=== PATIENT | male | born 1970 | race Caucasian/White ===

== ENCOUNTER 2020-08-22 04:54 | Emergency (ER) | payer MEDICAID ==
[~2020-08-22] VITALS: Ht 188 cm; Wt 86.3 kg
[2020-08-22] MEDS ORDERED: ASPIRIN 81MG TABLET PO ONE (05:45)
[2020-08-22 06:16] LABS: BASOPHILS % 0.7 % (0.0-2.0); EOSINOPHILS % 1.2 % (0.0-5.0); HEMATOCRIT. 48.8 % (42.0-52.0); HEMOGLOBIN. 16.6 g/dL (14.0-18.0); LYMPHOCYTES % 41.6 % (20.0-50.0); MEAN CORPUSCULAR HEMOGLOBIN 34.3 pg (28.0-32.0); MEAN CORPUSCULAR VOLUME 100.9 fL (80.0-94.0); MEAN PLATELET VOLUME 7.3 fl (7.4-10.4); MONOCYTES % 7.3 % (2.0-8.0); NEUTROPHILS % 49.2 % (40.0-76.0); PLATELET 215 x1000/uL (130-400); RED BLOOD CELL COUNT 4.84 mill/uL (4.7-6.1); RED CELL DISTRIBUTION WIDTH 13.9 % (11.6-14.6)
[2020-08-22 06:24] LABS: CHLORIDE 106 mEq/L (98-107)
[2020-08-22 09:00] VITALS: BP 135/94
== END 2020-08-22 09:25 | disposition left against medical advice (07) ==
LOC: ER 04:54 → CANBEDREQ 21:31
DX: R07.9 Chest pain, unspecified (principal); J44.9 Chronic obstructive pulmonary disease, unspecified; Z86.711 Personal history of pulmonary embolism
CPT/HCPCS: 36415; 71045; 80053; 83880; 84484; 85025; 93005; 99285; Z7610

== ENCOUNTER 2020-08-27 15:33 | Emergency (ER) | payer MEDICAID ==
[~2020-08-27] VITALS: Ht 190.5 cm; Wt 96.0 kg
[2020-08-27] MEDS ORDERED: LORAZEPAM 1MG TABLET PO ONE (16:45)
[2020-08-27] MEDS ORDERED: ASPIRIN 81MG TABLET PO ONE (16:45)
[2020-08-27 17:35] VITALS: BP 160/106
== END 2020-08-27 19:06 | disposition left against medical advice (07) ==
LOC: ER 15:33
DX: R07.89 Other chest pain (principal); I10 Essential (primary) hypertension; F17.210 Nicotine dependence, cigarettes, uncomplicated; F12.10 Cannabis abuse, uncomplicated; Z86.711 Personal history of pulmonary embolism; Z86.718 Personal history of other venous thrombosis and embolism
CPT/HCPCS: 93005; 99283

== ENCOUNTER 2020-08-30 16:04 | Emergency (ER) | payer MEDICAID ==
[~2020-08-30] VITALS: Ht 193 cm; Wt 91.0 kg
[2020-08-30] MEDS ORDERED: APIX5TAB PO (16:08)
[2020-08-30 17:07] LABS: CHLORIDE 103 mEq/L (98-107)
[2020-08-30 17:09] LABS: BASOPHILS % 0.6 % (0.0-2.0); EOSINOPHILS % 0.6 % (0.0-5.0); HEMATOCRIT. 47.7 % (42.0-52.0); HEMOGLOBIN. 16.6 g/dL (14.0-18.0); LYMPHOCYTES % 39.9 % (20.0-50.0); MEAN CORPUSCULAR HEMOGLOBIN 34.9 pg (28.0-32.0); MEAN CORPUSCULAR VOLUME 100.2 fL (80.0-94.0); MONOCYTES % 8.3 % (2.0-8.0); NEUTROPHILS % 50.6 % (40.0-76.0); PLATELET 107 x1000/uL (130-400); RED BLOOD CELL COUNT 4.76 mill/uL (4.7-6.1); RED CELL DISTRIBUTION WIDTH 13.8 % (11.6-14.6)
[2020-08-30] MEDS: LORAZEPAM 2MG/ML CPJ IV ONE (17:20)
[2020-08-30 17:41] LABS: ETHANOL BLOOD 380 mg/dL
[2020-08-30] MEDS ORDERED: IOHEXOL-350 100 ML BOTTLE ONE (21:41)
[2020-08-31] MEDS: LORAZEPAM 2MG/ML CPJ IV ONE (04:25)
[2020-08-31] MEDS: ONDANSETRON HCL 4MG/2ML INJ IV ONE (04:25)
[2020-08-31 07:46] VITALS: BP 131/93
== END 2020-08-31 08:37 | disposition short-term general hospital (02) ==
LOC: ER 16:04
DX: R07.89 Other chest pain (principal); F10.10 Alcohol abuse, uncomplicated; Z98.890 Other specified postprocedural states; Y90.8 Blood alcohol level of 240 mg/100 ml or more
CPT/HCPCS: 36415; 71045; 71275; 80053; 80320; 83605; 83880; 84484; 85025; 86850; 86900; 86901; 93005; 96374; 96375; 96376; 99285; J2060; J2405; Q9967; Z7610; G0480

== ENCOUNTER 2020-09-12 02:11 | Emergency (ER) | payer MEDICAID ==
[~2020-09-12] VITALS: Ht 188 cm; Wt 91.0 kg
[~2020-09-12 02:11] MED LIST: APIX5TAB PO
[2020-09-12 03:01] LABS: BASOPHILS % 0.9 % (0.0-2.0); EOSINOPHILS % 1.8 % (0.0-5.0); HEMATOCRIT. 41.9 % (42.0-52.0); HEMOGLOBIN. 14.2 g/dL (14.0-18.0); LYMPHOCYTES % 51.5 % (20.0-50.0); MEAN CORPUSCULAR HEMOGLOBIN 35.2 pg (28.0-32.0); MEAN CORPUSCULAR VOLUME 103.7 fL (80.0-94.0); MEAN PLATELET VOLUME 7.2 fl (7.4-10.4); MONOCYTES % 12.6 % (2.0-8.0); NEUTROPHILS % 33.2 % (40.0-76.0); PLATELET 274 x1000/uL (130-400); RED BLOOD CELL COUNT 4.04 mill/uL (4.7-6.1); RED CELL DISTRIBUTION WIDTH 14.4 % (11.6-14.6)
[2020-09-12 03:08] LABS: CHLORIDE 111 mEq/L (98-107)
[2020-09-12 05:00] VITALS: BP 125/78
[2020-09-18] MEDS ORDERED: AMLO10TA80 MT (12:08)
[2020-09-18] MEDS ORDERED: THIA100T72 PO (12:08)
[2020-09-18] MEDS ORDERED: APIX5TAB PO (12:08)
[2020-09-18] MEDS ORDERED: APIX5TAB MT (12:08)
[2020-09-18] MEDS ORDERED: L25 MT (12:08)
== END 2020-09-12 05:56 | disposition home or self-care (01) ==
LOC: ER 02:11
DX: R07.89 Other chest pain (principal); Z86.711 Personal history of pulmonary embolism; Z86.718 Personal history of other venous thrombosis and embolism
CPT/HCPCS: 36415; 71045; 80048; 84484; 85025; 85379; 93005; 99285

== ENCOUNTER 2020-09-25 17:05 | Emergency (ER) | payer OTHER ==
[~2020-09-25] VITALS: Ht 198.1 cm; Wt 90.0 kg
[~2020-09-25 17:05] MED LIST changes: +AMLO10TA80 MT; +APIX5TAB MT; +L25 MT; +THIA100T72 PO
[2020-09-25 18:59] LABS: BASOPHILS % 0.7 % (0.0-2.0); EOSINOPHILS % 1.3 % (0.0-5.0); HEMATOCRIT. 45.7 % (42.0-52.0); HEMOGLOBIN. 15.3 g/dL (14.0-18.0); LYMPHOCYTES % 51.7 % (20.0-50.0); MEAN CORPUSCULAR HEMOGLOBIN 34.4 pg (28.0-32.0); MEAN CORPUSCULAR VOLUME 102.9 fL (80.0-94.0); MEAN PLATELET VOLUME 7.8 fl (7.4-10.4); MONOCYTES % 13.6 % (2.0-8.0); NEUTROPHILS % 32.7 % (40.0-76.0); PLATELET 143 x1000/uL (130-400); RED BLOOD CELL COUNT 4.44 mill/uL (4.7-6.1); RED CELL DISTRIBUTION WIDTH 14.3 % (11.6-14.6)
[2020-09-25 19:05] LABS: CHLORIDE 109 mEq/L (98-107)
[2020-09-25] MEDS ORDERED: ASPIRIN 81MG TABLET PO ONE (19:15)
[2020-09-25 19:21] LABS: PROTHROMBIN TIME 10.3 sec (9.6-11.0)
[2020-09-25] MEDS ORDERED: IOHEXOL-300 100 ML BOTTLE ONE (19:29)
[2020-09-25] MEDS ORDERED: IOHEXOL-350 100 ML BOTTLE ONE (19:29)
[2020-09-25 19:33] LABS: ETHANOL BLOOD 361 mg/dL
[2020-09-26] MEDS ORDERED: AMOX-424 MT (01:05)
[2020-09-26 01:36] VITALS: BP 124/84
== END 2020-09-26 01:36 | disposition home or self-care (01) ==
LOC: ER 17:05
DX: F10.129 Alcohol abuse with intoxication, unspecified (principal); Y90.8 Blood alcohol level of 240 mg/100 ml or more; L03.039 Cellulitis of unspecified toe; Z86.711 Personal history of pulmonary embolism; Z86.718 Personal history of other venous thrombosis and embolism
CPT/HCPCS: 36415; 71045; 71275; 80053; 80320; 83690; 83880; 84484; 85025; 85610; 85730; 93005; 99285; Q9967; Z7610; G0480

== ENCOUNTER 2020-09-26 22:28 | Emergency (ER) | payer OTHER ==
[~2020-09-26] VITALS: Ht 193 cm; Wt 91.0 kg
[~2020-09-26 22:28] MED LIST changes: +AMOX-424 MT
[2020-09-27 00:30] VITALS: BP 138/90
== END 2020-09-27 01:24 | disposition home or self-care (01) ==
LOC: ER 22:28
DX: R07.9 Chest pain, unspecified (principal); Z86.711 Personal history of pulmonary embolism
CPT/HCPCS: 93005; 99283; Z7610

== ENCOUNTER 2020-10-14 17:16 | Emergency (ER) | payer OTHER ==
[~2020-10-14] VITALS: Ht 185.4 cm; Wt 77.5 kg
[2020-10-14 18:20] LABS: BASOPHILS % 0.8 % (0.0-2.0); EOSINOPHILS % 3.3 % (0.0-5.0); HEMATOCRIT. 43.5 % (42.0-52.0); HEMOGLOBIN. 14.5 g/dL (14.0-18.0); LYMPHOCYTES % 46.2 % (20.0-50.0); MEAN CORPUSCULAR HEMOGLOBIN 34.1 pg (28.0-32.0); MEAN CORPUSCULAR VOLUME 102.3 fL (80.0-94.0); MEAN PLATELET VOLUME 7.2 fl (7.4-10.4); MONOCYTES % 8.2 % (2.0-8.0); NEUTROPHILS % 41.5 % (40.0-76.0); PLATELET 163 x1000/uL (130-400); RED BLOOD CELL COUNT 4.25 mill/uL (4.7-6.1); RED CELL DISTRIBUTION WIDTH 13.9 % (11.6-14.6)
[2020-10-14 18:29] LABS: CHLORIDE 111 mEq/L (98-107)
[2020-10-14] MEDS ORDERED: MORPHINE SULFATE 4 MG/ML CPJ (NOT FOR IM USE) IV ONE (18:45)
[2020-10-14] MEDS ORDERED: IOHEXOL-350 100 ML BOTTLE ONE ×2 (20:39→20:40)
[2020-10-14 22:36] VITALS: BP 113/71
== END 2020-10-14 22:45 | disposition home or self-care (01) ==
LOC: ER 17:16
DX: R07.9 Chest pain, unspecified (principal); I10 Essential (primary) hypertension; F10.20 Alcohol dependence, uncomplicated; F17.290 Nicotine dependence, other tobacco product, uncomplicated; Z79.899 Other long term (current) drug therapy; Y90.9 Presence of alcohol in blood, level not specified
CPT/HCPCS: 36415; 71045; 71275; 80053; 83880; 84484; 85025; 93005; 96374; 99285; 99406; J2270; Q9967

== ENCOUNTER 2020-10-28 22:53 | Emergency (ER) | payer OTHER ==
[~2020-10-28] VITALS: Ht 195.6 cm; Wt 110.0 kg
[2020-10-28 23:04] VITALS: BP 112/72
== END 2020-10-29 00:06 | disposition left against medical advice (07) ==
LOC: ER 22:53
DX: R07.89 Other chest pain (principal); F10.20 Alcohol dependence, uncomplicated; Z86.711 Personal history of pulmonary embolism; Y90.9 Presence of alcohol in blood, level not specified; Z79.01 Long term (current) use of anticoagulants
CPT/HCPCS: 93005; 99283

== ENCOUNTER 2020-11-02 13:33 | Emergency (ER) | payer OTHER ==
[~2020-11-02] VITALS: Ht 198.1 cm; Wt 90.7 kg
[2020-11-02 15:27] LABS: BASOPHILS % 0.9 % (0.0-2.0); HEMATOCRIT. 49.2 % (42.0-52.0); HEMOGLOBIN. 16.6 g/dL (14.0-18.0); LYMPHOCYTES % 25.9 % (20.0-50.0); MEAN CORPUSCULAR HEMOGLOBIN 34.4 pg (28.0-32.0); MEAN CORPUSCULAR VOLUME 101.8 fL (80.0-94.0); MEAN PLATELET VOLUME 7.3 fl (7.4-10.4); MONOCYTES % 11.6 % (2.0-8.0); NEUTROPHILS % 60.6 % (40.0-76.0); PLATELET 254 x1000/uL (130-400); RED BLOOD CELL COUNT 4.84 mill/uL (4.7-6.1); RED CELL DISTRIBUTION WIDTH 14.4 % (11.6-14.6)
[2020-11-02] MEDS ORDERED: ONDANSETRON HCL 4MG/2ML INJ IV ONE (15:30)
[2020-11-02 15:46] LABS: CHLORIDE 105 mEq/L (98-107)
[2020-11-02] MEDS ORDERED: LORA-249 MT (17:19)
[2020-11-02 17:25] VITALS: BP 124/78
== END 2020-11-02 17:40 | disposition home or self-care (01) ==
LOC: ER 13:44
DX: F10.10 Alcohol abuse, uncomplicated (principal); Z79.899 Other long term (current) drug therapy; Z86.711 Personal history of pulmonary embolism; Y90.9 Presence of alcohol in blood, level not specified
CPT/HCPCS: 36415; 71045; 80053; 83880; 84484; 85025; 93005; 96374; 99285; J2405

== ENCOUNTER 2020-11-04 00:58 | Emergency (ER) | payer MEDICAID, OTHER ==
[~2020-11-04] VITALS: Ht 182.9 cm; Wt 86.0 kg
[~2020-11-04 00:58] MED LIST changes: +LORA-249 MT
[2020-11-04] MEDS ORDERED: LORAZEPAM 2MG/ML CPJ IV STA (01:15)
[2020-11-04] MEDS ORDERED: SODIUM CHLORIDE 0.9% 1,000 ML IV ONE (01:15)
[2020-11-04] MEDS ORDERED: FOLIC ACID 1MG TABLET PO ONE (01:30)
[2020-11-04] MEDS ORDERED: DEXT 5%/0.9% NACL 500 ML IV ONE (01:30)
[2020-11-04] MEDS ORDERED: THIAMINE HCL 100MG TABLET PO ONE (01:30)
[2020-11-04 01:38] LABS: BASOPHILS % 0.7 % (0.0-2.0); EOSINOPHILS % 0.3 % (0.0-5.0); HEMATOCRIT. 44.1 % (42.0-52.0); HEMOGLOBIN. 15.3 g/dL (14.0-18.0); LYMPHOCYTES % 18.7 % (20.0-50.0); MEAN CORPUSCULAR VOLUME 100.9 fL (80.0-94.0); MEAN PLATELET VOLUME 7.4 fl (7.4-10.4); NEUTROPHILS % 73.3 % (40.0-76.0); PLATELET 219 x1000/uL (130-400); RED BLOOD CELL COUNT 4.37 mill/uL (4.7-6.1)
[2020-11-04 01:40] LABS: CHLORIDE 108 mEq/L (98-107)
[2020-11-04 01:58] LABS: ETHANOL BLOOD 438 mg/dL
[2020-11-04 04:12] LABS: CLARITY URINE CLEAR (CLEAR); COLOR URINE YELLOW (YELLOW); KETONES URINE NEGATIVE (NEGATIVE); LEUKOCYTE ESTERASE URINE NEGATIVE (NEGATIVE); NITRITE URINE NEGATIVE (NEGATIVE); OCCULT BLOOD URINE TRACE (NEGATIVE); PROTEIN URINE NEGATIVE (NEGATIVE); SPECIFIC GRAVITY URINE 1.011 (1.005-1.030)
[2020-11-04 04:21] LABS: OPIATES URINE SCREEN NEGATIVE (NEGATIVE); PHENCYCLIDINE URINE SCREEN NEGATIVE (NEGATIVE)
[2020-11-04] MEDS ORDERED: CHLO10CA71 MT (04:21)
[2020-11-04 04:22] LABS: *AMPHETAMINES SCREEN URINE NEGATIVE (NEGATIVE); *BARBITURATES SCREEN URINE NEGATIVE (NEGATIVE); *BENZODIAZEPINES SCREEN URINE PRESUMTIVE POSITIVE (NEGATIVE); *COCAINE SCREEN URINE NEGATIVE (NEGATIVE); CANNABINOID URINE SCREEN NEGATIVE (NEGATIVE); METHADONE URINE SCREEN NEGATIVE (NEGATIVE)
[2020-11-04 04:45] VITALS: BP 140/97
== END 2020-11-04 04:46 | disposition home or self-care (01) ==
LOC: ER 01:20
DX: F10.10 Alcohol abuse, uncomplicated (principal); Y90.8 Blood alcohol level of 240 mg/100 ml or more; R25.1 Tremor, unspecified; F41.9 Anxiety disorder, unspecified; I10 Essential (primary) hypertension; Z86.711 Personal history of pulmonary embolism
CPT/HCPCS: 36415; 80053; 80305; 80307; 80320; 80329; 81003; 83690; 85025; 96361; 96374; 99283; C1893; J2060; J7030; J7042; G0480

== ENCOUNTER 2020-11-06 08:37 | Emergency (ER) | payer MEDICAID, OTHER ==
[~2020-11-06] VITALS: Ht 177.8 cm; Wt 78.0 kg
[~2020-11-06 08:37] MED LIST changes: +CHLO10CA71 MT
[2020-11-06] MEDS ORDERED: ONDANSETRON HCL 4MG/2ML INJ IV STA (09:02)
[2020-11-06] MEDS ORDERED: SODIUM CHLORIDE 0.9% 1,000 ML IV ONE (09:15)
[2020-11-06] MEDS ORDERED: LORAZEPAM 2MG/ML CPJ IV ONE (09:15)
[2020-11-06 09:26] LABS: BASOPHILS % 0.8 % (0.0-2.0); EOSINOPHILS % 0.7 % (0.0-5.0); HEMATOCRIT. 44.5 % (42.0-52.0); HEMOGLOBIN. 15.7 g/dL (14.0-18.0); LYMPHOCYTES % 18.5 % (20.0-50.0); MEAN CORPUSCULAR HEMOGLOBIN 35.5 pg (28.0-32.0); MEAN CORPUSCULAR VOLUME 100.7 fL (80.0-94.0); MEAN PLATELET VOLUME 7.8 fl (7.4-10.4); MONOCYTES % 8.2 % (2.0-8.0); NEUTROPHILS % 71.8 % (40.0-76.0); PLATELET 161 x1000/uL (130-400); RED BLOOD CELL COUNT 4.42 mill/uL (4.7-6.1); RED CELL DISTRIBUTION WIDTH 14.1 % (11.6-14.6)
[2020-11-06 09:33] LABS: CHLORIDE 100 mEq/L (98-107)
[2020-11-06 09:36] LABS: PROTHROMBIN TIME 10.7 sec (9.6-11.0)
[2020-11-06 09:37] LABS: ETHANOL BLOOD 165 mg/dL
[2020-11-06 09:40] VITALS: BP 169/100
[2020-11-06] MEDS ORDERED: LORA-250 MT (09:59)
[2020-11-06] MEDS ORDERED: ONDA4TAB5 MT (09:59)
== END 2020-11-06 10:30 | disposition home or self-care (01) ==
LOC: ER 08:57
DX: F10.229 Alcohol dependence with intoxication, unspecified (principal); Y90.6 Blood alcohol level of 120-199 mg/100 ml; Z79.899 Other long term (current) drug therapy
CPT/HCPCS: 36415; 71045; 80053; 80320; 83690; 83735; 84484; 85025; 85610; 93005; 96361; 96374; 96375; 99285; J2060; J2405; J7030; G0480

== ENCOUNTER 2020-11-14 23:17 | Emergency (ER) | payer MEDICAID, OTHER ==
[~2020-11-14] VITALS: Ht 198.1 cm; Wt 100.0 kg
[~2020-11-14 23:17] MED LIST changes: +LORA-250 MT; +ONDA4TAB5 MT
[2020-11-14] MEDS ORDERED: ACETAMINOPHEN 325MG TABLET PO STA (23:55)
[2020-11-15] MEDS ORDERED: SODIUM CHLORIDE 0.9% 1,000 ML IV ONE
[2020-11-15 00:42] LABS: CHLORIDE 103 mEq/L (98-107)
[2020-11-15 00:44] LABS: BASOPHILS % 0.7 % (0.0-2.0); EOSINOPHILS % 0.9 % (0.0-5.0); HEMATOCRIT. 45.8 % (42.0-52.0); HEMOGLOBIN. 15.8 g/dL (14.0-18.0); LYMPHOCYTES % 33.4 % (20.0-50.0); MEAN CORPUSCULAR VOLUME 101.5 fL (80.0-94.0); MEAN PLATELET VOLUME 7.6 fl (7.4-10.4); MONOCYTES % 14.5 % (2.0-8.0); NEUTROPHILS % 50.5 % (40.0-76.0); PLATELET 149 x1000/uL (130-400); RED BLOOD CELL COUNT 4.52 mill/uL (4.7-6.1); RED CELL DISTRIBUTION WIDTH 15.1 % (11.6-14.6)
[2020-11-15 01:12] LABS: ETHANOL BLOOD 475 mg/dL
[2020-11-15] MEDS ORDERED: LORAZEPAM 2MG/ML CPJ IV ONE (03:45)
[2020-11-15] MEDS ORDERED: ONDANSETRON HCL 4MG/2ML INJ IV ONE (04:45)
[2020-11-15 10:13] VITALS: BP 122/85
== END 2020-11-15 11:23 | disposition home or self-care (01) ==
LOC: ER 23:17
DX: R07.89 Other chest pain (principal); F41.9 Anxiety disorder, unspecified; F10.129 Alcohol abuse with intoxication, unspecified; Y90.8 Blood alcohol level of 240 mg/100 ml or more; Z86.711 Personal history of pulmonary embolism
CPT/HCPCS: 36415; 71045; 80053; 80320; 84484; 85025; 93005; 96361; 96374; 99285; J2060; G0480

== ENCOUNTER 2020-11-24 13:11 | Emergency (ER) | payer MEDICAID, OTHER ==
[~2020-11-24] VITALS: Ht 198.1 cm; Wt 77.0 kg
[2020-11-24] MEDS ORDERED: LORAZEPAM 2MG/ML CPJ IV ONE ×2 (14:45→16:45)
[2020-11-24] MEDS ORDERED: DEXT 5%/0.9% NACL 1,000 ML IV ONE (14:45)
[2020-11-24 15:44] LABS: BASOPHILS % 1.3 % (0.0-2.0); EOSINOPHILS % 0.3 % (0.0-5.0); HEMATOCRIT. 45.7 % (42.0-52.0); HEMOGLOBIN. 16.2 g/dL (14.0-18.0); MEAN CORPUSCULAR HEMOGLOBIN 35.7 pg (28.0-32.0); MEAN CORPUSCULAR VOLUME 100.6 fL (80.0-94.0); MEAN PLATELET VOLUME 7.2 fl (7.4-10.4); MONOCYTES % 11.4 % (2.0-8.0); PLATELET 161 x1000/uL (130-400); RED BLOOD CELL COUNT 4.54 mill/uL (4.7-6.1); RED CELL DISTRIBUTION WIDTH 14.4 % (11.6-14.6)
[2020-11-24 15:49] LABS: CHLORIDE 105 mEq/L (98-107)
[2020-11-24 15:55] LABS: ETHANOL BLOOD 246 mg/dL
[2020-11-24 16:09] LABS: *AMPHETAMINES SCREEN URINE NEGATIVE (NEGATIVE); *BARBITURATES SCREEN URINE PRESUMTIVE POSITIVE (NEGATIVE); *BENZODIAZEPINES SCREEN URINE PRESUMTIVE POSITIVE (NEGATIVE); METHADONE URINE SCREEN NEGATIVE (NEGATIVE); OPIATES URINE SCREEN NEGATIVE (NEGATIVE)
[2020-11-24 16:10] LABS: *COCAINE SCREEN URINE NEGATIVE (NEGATIVE); CANNABINOID URINE SCREEN NEGATIVE (NEGATIVE); PHENCYCLIDINE URINE SCREEN NEGATIVE (NEGATIVE)
[2020-11-24] MEDS ORDERED: CEFTRIAXONE 1 G PREMIX 50 ML IV ONE (16:45)
[2020-11-24] MEDS ORDERED: SODIUM CHLORIDE 0.9% 1,000 ML IV ONE (16:45)
[2020-11-24 19:55] VITALS: BP 143/90
== END 2020-11-24 21:22 | disposition left against medical advice (07) ==
LOC: ER 13:11
DX: R07.9 Chest pain, unspecified (principal); J44.9 Chronic obstructive pulmonary disease, unspecified; R56.9 Unspecified convulsions; F10.129 Alcohol abuse with intoxication, unspecified; Y90.8 Blood alcohol level of 240 mg/100 ml or more; F19.10 Other psychoactive substance abuse, uncomplicated
CPT/HCPCS: 36415; 71045; 80053; 80305; 80320; 83605; 83880; 84484; 85025; 93005; 96365; 96375; 96376; 99285; J0696; J2060; J7030; J7042; G0480

== ENCOUNTER 2020-11-29 01:48 | Emergency (ER) | payer MEDICAID, OTHER ==
[~2020-11-29] VITALS: Ht 203.2 cm; Wt 91.0 kg
[2020-11-29] MEDS ORDERED: LORAZEPAM 1MG TABLET PO ONE (02:45)
[2020-11-29 02:47] LABS: CHLORIDE 100 mEq/L (98-107)
[2020-11-29] MEDS: HYDROCODONE/ACETAMINOPHEN 5/325MG TABLET PO ONE ×2 (02:59→04:24)
[2020-11-29 04:25] LABS: BASOPHILS % 1.4 % (0.0-2.0); EOSINOPHILS % 3.4 % (0.0-5.0); HEMATOCRIT. 51.7 % (42.0-52.0); HEMOGLOBIN. 18.3 g/dL (14.0-18.0); LYMPHOCYTES % 45.2 % (20.0-50.0); MEAN CORPUSCULAR HEMOGLOBIN 35.9 pg (28.0-32.0); MEAN CORPUSCULAR VOLUME 101.6 fL (80.0-94.0); MEAN PLATELET VOLUME 8.2 fl (7.4-10.4); MONOCYTES % 7.5 % (2.0-8.0); NEUTROPHILS % 42.5 % (40.0-76.0); RED BLOOD CELL COUNT 5.08 mill/uL (4.7-6.1); RED CELL DISTRIBUTION WIDTH 14.8 % (11.6-14.6)
[2020-11-29 04:28] LABS: PLATELET 169 x1000/uL (130-400)
[2020-11-29 04:53] VITALS: BP 137/91
[2020-11-30] MEDS ORDERED: HYDR-3782 MT (14:36)
== END 2020-11-29 04:54 | disposition home or self-care (01) ==
LOC: ER 01:48
DX: R07.9 Chest pain, unspecified (principal)
CPT/HCPCS: 36415; 71045; 80053; 84484; 85025; 93005; 99285

== ENCOUNTER 2020-11-30 08:36 | Emergency (ER) | payer MEDICAID ==
[~2020-11-30] VITALS: Ht 198.1 cm; Wt 90.0 kg
[2020-11-30] MEDS ORDERED: LORAZEPAM 2MG/ML CPJ IV ONE (09:15)
[2020-11-30 09:44] LABS: BASOPHILS % 1.2 % (0.0-2.0); EOSINOPHILS % 0.9 % (0.0-5.0); HEMATOCRIT. 43.7 % (42.0-52.0); HEMOGLOBIN. 15.6 g/dL (14.0-18.0); LYMPHOCYTES % 29.2 % (20.0-50.0); MEAN CORPUSCULAR HEMOGLOBIN 35.7 pg (28.0-32.0); MEAN CORPUSCULAR VOLUME 99.9 fL (80.0-94.0); MEAN PLATELET VOLUME 7.6 fl (7.4-10.4); NEUTROPHILS % 61.7 % (40.0-76.0); PLATELET 151 x1000/uL (130-400); RED BLOOD CELL COUNT 4.37 mill/uL (4.7-6.1); RED CELL DISTRIBUTION WIDTH 14.9 % (11.6-14.6)
[2020-11-30 09:55] LABS: CHLORIDE 101 mEq/L (98-107)
[2020-11-30 10:02] LABS: *BENZODIAZEPINES SCREEN URINE NEGATIVE (NEGATIVE); *COCAINE SCREEN URINE NEGATIVE (NEGATIVE); METHADONE URINE SCREEN NEGATIVE (NEGATIVE)
[2020-11-30 10:03] LABS: *AMPHETAMINES SCREEN URINE NEGATIVE (NEGATIVE); *BARBITURATES SCREEN URINE NEGATIVE (NEGATIVE); OPIATES URINE SCREEN NEGATIVE (NEGATIVE); PHENCYCLIDINE URINE SCREEN NEGATIVE (NEGATIVE)
[2020-11-30 10:10] LABS: ETHANOL BLOOD 458 mg/dL
[2020-11-30 10:19] LABS: CANNABINOID URINE SCREEN NEGATIVE (NEGATIVE)
[2020-11-30] MEDS ORDERED: LIDOCAINE 5% PATCH TOP SCH (11:30)
[2020-11-30] MEDS: IBUPROFEN 400MG TABLET PO ONE ×2 (12:24→12:26)
[2020-11-30] MEDS ORDERED: LORAZEPAM 1MG TABLET PO ONE (12:45)
[2020-11-30] MEDS ORDERED: HYDR-3782 MT (14:36)
[2020-11-30 14:53] VITALS: BP 135/81
== END 2020-11-30 15:15 | disposition home or self-care (01) ==
LOC: ER 08:36
DX: F10.10 Alcohol abuse, uncomplicated (principal); F41.0 Panic disorder [episodic paroxysmal anxiety]; R07.89 Other chest pain; I10 Essential (primary) hypertension; Z79.899 Other long term (current) drug therapy; Y90.8 Blood alcohol level of 240 mg/100 ml or more
CPT/HCPCS: 36415; 71045; 80053; 80305; 80320; 83690; 83880; 84484; 85025; 93005; 96374; 99285; J2060; Z7610; G0480

== ENCOUNTER 2020-12-02 13:32 | Emergency (ER) | payer MEDICAID, OTHER ==
[~2020-12-02] VITALS: Ht 193 cm; Wt 91.0 kg
[~2020-12-02 13:32] MED LIST changes: +HYDR-3782 MT
[2020-12-02 17:56] VITALS: BP 145/100
== END 2020-12-02 18:36 | disposition left against medical advice (07) ==
LOC: ER 13:46
DX: F10.239 Alcohol dependence with withdrawal, unspecified (principal); R53.1 Weakness; R42 Dizziness and giddiness; R07.9 Chest pain, unspecified; Z53.21 Procedure and treatment not carried out due to patient leaving prior to being seen by health care provider; Y90.9 Presence of alcohol in blood, level not specified
CPT/HCPCS: 93005; 99283

== ENCOUNTER 2020-12-19 00:53 | Emergency (ER) | payer OTHER ==
[~2020-12-19] VITALS: Ht 198.1 cm; Wt 99.8 kg
[2020-12-19 02:50] VITALS: BP 141/87
== END 2020-12-19 02:49 | disposition home or self-care (01) ==
LOC: ER 00:53
DX: F10.129 Alcohol abuse with intoxication, unspecified (principal); Y90.9 Presence of alcohol in blood, level not specified; F41.9 Anxiety disorder, unspecified; F32.9 Major depressive disorder, single episode, unspecified; Z86.711 Personal history of pulmonary embolism; Z79.01 Long term (current) use of anticoagulants; Z91.14 Patient's other noncompliance with medication regimen
CPT/HCPCS: 99283

== ENCOUNTER 2020-12-20 16:03 | Emergency (ER) | payer OTHER ==
[~2020-12-20] VITALS: Ht 198.1 cm; Wt 100.0 kg
[2020-12-20] MEDS ORDERED: CHLORDIAZEPOXIDE 25MG CAPSULE PO ONE (16:30)
[2020-12-20] MEDS ORDERED: SODIUM CHLORIDE 0.9% 1,000 ML IV ONE (16:30)
[2020-12-20] MEDS ORDERED: LORAZEPAM 2MG/ML CPJ IV ONE (16:30)
[2020-12-20 16:37] LABS: BASOPHILS % 1.2 % (0.0-2.0); EOSINOPHILS % 0.4 % (0.0-5.0); HEMATOCRIT. 45.8 % (42.0-52.0); HEMOGLOBIN. 16.2 g/dL (14.0-18.0); LYMPHOCYTES % 19.3 % (20.0-50.0); MEAN CORPUSCULAR HEMOGLOBIN 35.5 pg (28.0-32.0); MEAN CORPUSCULAR VOLUME 100.3 fL (80.0-94.0); MONOCYTES % 8.8 % (2.0-8.0); NEUTROPHILS % 70.3 % (40.0-76.0); PLATELET 355 x1000/uL (130-400); RED BLOOD CELL COUNT 4.56 mill/uL (4.7-6.1); RED CELL DISTRIBUTION WIDTH 14.6 % (11.6-14.6)
[2020-12-20 16:44] LABS: CHLORIDE 103 mEq/L (98-107)
[2020-12-20 16:48] LABS: ETHANOL BLOOD 162 mg/dL
[2020-12-20 18:16] VITALS: BP 152/102
== END 2020-12-20 18:29 | disposition home or self-care (01) ==
LOC: ER 16:03
DX: F10.239 Alcohol dependence with withdrawal, unspecified (principal); Y90.9 Presence of alcohol in blood, level not specified; F32.9 Major depressive disorder, single episode, unspecified; Z86.711 Personal history of pulmonary embolism
CPT/HCPCS: 36415; 80053; 80320; 85025; 96361; 96374; 99283; J2060; J7030; Z7610; 80305; 81003; G0480

== ENCOUNTER 2020-12-28 09:57 | Emergency (ER) | payer OTHER ==
[~2020-12-28] VITALS: Ht 193 cm; Wt 89.0 kg
[2020-12-28] MEDS ORDERED: SODIUM CHLORIDE 0.9% 1,000 ML IV ONE (10:15)
[2020-12-28] MEDS ORDERED: LORAZEPAM 2MG/ML CPJ IV ONE (10:15)
[2020-12-28 11:00] VITALS: BP 145/98
== END 2020-12-28 11:01 | disposition home or self-care (01) ==
LOC: ER 09:57
DX: F10.129 Alcohol abuse with intoxication, unspecified (principal); Z79.899 Other long term (current) drug therapy; Y90.9 Presence of alcohol in blood, level not specified
CPT/HCPCS: 99283; J7030

== ENCOUNTER 2021-01-06 01:16 | Emergency (ER) | payer OTHER ==
[~2021-01-06] VITALS: Ht 198.1 cm; Wt 91.0 kg
[2021-01-06] MEDS ORDERED: KETOROLAC 30MG/ML VIAL IV STA (02:27)
[2021-01-06] MEDS ORDERED: SODIUM CHLORIDE 0.9% 1,000 ML IV ONE (02:30)
[2021-01-06 02:46] LABS: BASOPHILS % 0.8 % (0.0-2.0); EOSINOPHILS % 1.6 % (0.0-5.0); HEMATOCRIT. 48.3 % (42.0-52.0); HEMOGLOBIN. 16.9 g/dL (14.0-18.0); LYMPHOCYTES % 46.8 % (20.0-50.0); MEAN CORPUSCULAR HEMOGLOBIN 35.9 pg (28.0-32.0); MEAN CORPUSCULAR VOLUME 102.5 fL (80.0-94.0); MEAN PLATELET VOLUME 7.5 fl (7.4-10.4); MONOCYTES % 10.5 % (2.0-8.0); NEUTROPHILS % 40.3 % (40.0-76.0); PLATELET 145 x1000/uL (130-400); RED BLOOD CELL COUNT 4.71 mill/uL (4.7-6.1); RED CELL DISTRIBUTION WIDTH 14.9 % (11.6-14.6)
[2021-01-06 02:47] LABS: CHLORIDE 105 mEq/L (98-107)
[2021-01-06 03:10] LABS: ETHANOL BLOOD 406 mg/dL
[2021-01-06 04:00] LABS: CLARITY URINE CLEAR (CLEAR); COLOR URINE YELLOW (YELLOW); KETONES URINE NEGATIVE (NEGATIVE); LEUKOCYTE ESTERASE URINE NEGATIVE (NEGATIVE); NITRITE URINE NEGATIVE (NEGATIVE); OCCULT BLOOD URINE NEGATIVE (NEGATIVE); PROTEIN URINE NEGATIVE (NEGATIVE); UROBILINOGEN URINE 0.2 E.U./dL (0.2-1.0)
[2021-01-06] MEDS ORDERED: FAMO-135 PO (04:02)
[2021-01-06 04:13] LABS: *AMPHETAMINES SCREEN URINE NEGATIVE (NEGATIVE)
[2021-01-06 04:14] LABS: *BARBITURATES SCREEN URINE NEGATIVE (NEGATIVE); *BENZODIAZEPINES SCREEN URINE PRESUMTIVE POSITIVE (NEGATIVE); *COCAINE SCREEN URINE NEGATIVE (NEGATIVE); CANNABINOID URINE SCREEN NEGATIVE (NEGATIVE); METHADONE URINE SCREEN NEGATIVE (NEGATIVE); OPIATES URINE SCREEN NEGATIVE (NEGATIVE); PHENCYCLIDINE URINE SCREEN NEGATIVE (NEGATIVE)
[2021-01-06 05:42] VITALS: BP 129/67
== END 2021-01-06 05:43 | disposition home or self-care (01) ==
LOC: ER 01:35
DX: F10.129 Alcohol abuse with intoxication, unspecified (principal); Y90.8 Blood alcohol level of 240 mg/100 ml or more; R10.13 Epigastric pain; Z98.890 Other specified postprocedural states; Z79.899 Other long term (current) drug therapy
CPT/HCPCS: 36415; 74176; 80053; 80305; 80320; 81003; 83690; 85025; 96360; 99284; J7030; G0480

== ENCOUNTER 2021-01-11 04:49 | Emergency (ER) | payer OTHER ==
[~2021-01-11] VITALS: Ht 198.1 cm; Wt 100.0 kg
[~2021-01-11 04:49] MED LIST changes: +FAMO-135 PO
[2021-01-11 05:10] VITALS: BP 142/92
[2021-01-11] MEDS ORDERED: L25 MT (05:17)
== END 2021-01-11 05:32 | disposition home or self-care (01) ==
LOC: ER 04:49
DX: F10.129 Alcohol abuse with intoxication, unspecified (principal); Z79.899 Other long term (current) drug therapy; Y90.9 Presence of alcohol in blood, level not specified
CPT/HCPCS: 93005; 99283

== ENCOUNTER 2021-01-13 05:29 | Emergency (ER) | payer OTHER ==
[~2021-01-13] VITALS: Ht 182.9 cm; Wt 83.0 kg
[2021-01-13] MEDS ORDERED: LORAZEPAM 1MG TABLET PO ONE (06:45)
[2021-01-13] MEDS ORDERED: ONDANSETRON 4MG ODT PO ONE (06:45)
[2021-01-13 07:04] LABS: CLARITY URINE CLEAR (CLEAR); COLOR URINE YELLOW (YELLOW); KETONES URINE NEGATIVE (NEGATIVE); LEUKOCYTE ESTERASE URINE NEGATIVE (NEGATIVE); NITRITE URINE NEGATIVE (NEGATIVE); OCCULT BLOOD URINE TRACE (NEGATIVE); PROTEIN URINE NEGATIVE (NEGATIVE); SPECIFIC GRAVITY URINE 1.006 (1.005-1.030)
[2021-01-13 07:15] LABS: *COCAINE SCREEN URINE NEGATIVE (NEGATIVE); METHADONE URINE SCREEN NEGATIVE (NEGATIVE)
[2021-01-13 07:16] LABS: *AMPHETAMINES SCREEN URINE NEGATIVE (NEGATIVE); *BARBITURATES SCREEN URINE NEGATIVE (NEGATIVE); CANNABINOID URINE SCREEN NEGATIVE (NEGATIVE); OPIATES URINE SCREEN NEGATIVE (NEGATIVE)
[2021-01-13 07:17] LABS: *BENZODIAZEPINES SCREEN URINE NEGATIVE (NEGATIVE); PHENCYCLIDINE URINE SCREEN NEGATIVE (NEGATIVE)
[2021-01-13 08:02] LABS: EOSINOPHILS % 3.8 % (0.0-5.0); HEMATOCRIT. 44.4 % (42.0-52.0); HEMOGLOBIN. 15.9 g/dL (14.0-18.0); LYMPHOCYTES % 45.5 % (20.0-50.0); MEAN CORPUSCULAR HEMOGLOBIN 35.8 pg (28.0-32.0); MEAN CORPUSCULAR VOLUME 100.2 fL (80.0-94.0); MEAN PLATELET VOLUME 7.3 fl (7.4-10.4); MONOCYTES % 9.6 % (2.0-8.0); NEUTROPHILS % 40.1 % (40.0-76.0); PLATELET 146 x1000/uL (130-400); RED BLOOD CELL COUNT 4.43 mill/uL (4.7-6.1); RED CELL DISTRIBUTION WIDTH 15.1 % (11.6-14.6)
[2021-01-13 08:10] LABS: CHLORIDE 109 mEq/L (98-107)
[2021-01-13 08:31] LABS: ETHANOL BLOOD 405 mg/dL
[2021-01-13] MEDS ORDERED: POTASSIUM CHLORIDE 20MEQ TABLET SR PO ONE (09:00)
[2021-01-13] MEDS ORDERED: CHLORDIAZEPOXIDE 25MG CAPSULE PO ONE (09:00)
[2021-01-13 09:20] VITALS: BP 117/72
[2021-01-13] MEDS ORDERED: IBUP-2029 MT (10:38)
[2021-01-28] MEDS ORDERED: METO-539 MT ×2 (12:21→12:22)
[2021-01-28] MEDS ORDERED: APIX5TAB MT (12:22)
== END 2021-01-13 11:07 | disposition home or self-care (01) ==
LOC: ER 05:41
DX: T51.0X1A Toxic effect of ethanol, accidental (unintentional), initial encounter (principal); Y92.89 Other specified places as the place of occurrence of the external cause; E87.6 Hypokalemia; Z79.899 Other long term (current) drug therapy
CPT/HCPCS: 36415; 80053; 80305; 80307; 80320; 80329; 81003; 85025; 93005; 99284; Q0162; Z7610; G0480

== ENCOUNTER 2021-01-16 23:49 | Emergency (ER) | payer OTHER ==
[~2021-01-16] VITALS: Ht 185.4 cm; Wt 98.0 kg
[~2021-01-16 23:49] MED LIST changes: +IBUP-2029 MT
[2021-01-17] MEDS ORDERED: ACETAMINOPHEN 325MG TABLET PO STA (00:19)
[2021-01-17 01:19] VITALS: BP 134/89
[2021-01-28] MEDS ORDERED: METO-539 MT ×2 (12:21→12:22)
[2021-01-28] MEDS ORDERED: APIX5TAB MT (12:22)
== END 2021-01-17 01:20 | disposition left against medical advice (07) ==
LOC: ER 23:49
DX: R07.9 Chest pain, unspecified (principal); Z86.718 Personal history of other venous thrombosis and embolism
CPT/HCPCS: 71045; 93005; 99283

== ENCOUNTER 2021-01-24 21:27 | Emergency (ER) | payer OTHER ==
[~2021-01-24] VITALS: Ht 198.1 cm; Wt 108.0 kg
[2021-01-24] MEDS ORDERED: SODIUM CHLORIDE 0.9% 1,000 ML IV ONE (22:15)
[2021-01-24 22:29] LABS: HEMATOCRIT. 49.7 % (42.0-52.0); HEMOGLOBIN. 17.3 g/dL (14.0-18.0); MEAN CORPUSCULAR HEMOGLOBIN 35.6 pg (28.0-32.0); MEAN CORPUSCULAR VOLUME 102.1 fL (80.0-94.0); MEAN PLATELET VOLUME 8.1 fl (7.4-10.4); PLATELET 96 x1000/uL (130-400); RED BLOOD CELL COUNT 4.86 mill/uL (4.7-6.1); RED CELL DISTRIBUTION WIDTH 15.4 % (11.6-14.6)
[2021-01-24 22:32] LABS: CHLORIDE 103 mEq/L (98-107)
[2021-01-24 23:03] LABS: PLATELET ESTIMATE DECREASED
[2021-01-25 06:25] VITALS: BP 119/70
[2021-01-28] MEDS ORDERED: METO-539 MT ×2 (12:21→12:22)
[2021-01-28] MEDS ORDERED: APIX5TAB MT (12:22)
== END 2021-01-25 06:25 | disposition home or self-care (01) ==
LOC: ER 21:27
DX: F10.129 Alcohol abuse with intoxication, unspecified (principal); R07.89 Other chest pain; F41.9 Anxiety disorder, unspecified; R74.01 Elevation of levels of liver transaminase levels; I10 Essential (primary) hypertension; Z79.899 Other long term (current) drug therapy; Y90.9 Presence of alcohol in blood, level not specified
CPT/HCPCS: 36415; 71045; 80053; 84484; 85025; 93005; 99285; J7030

== ENCOUNTER 2021-02-12 16:46 | Emergency (ER) | payer OTHER ==
[~2021-02-12] VITALS: Ht 198.1 cm; Wt 91.0 kg
[~2021-02-12 16:46] MED LIST changes: -AMLO10TA80 MT; -AMOX-424 MT; -APIX5TAB PO; -CHLO10CA71 MT; -L25 MT; -LORA-250 MT; +METO-539 MT
[2021-02-12 18:28] LABS: BASOPHILS % 1.4 % (0.0-2.0); EOSINOPHILS % 1.4 % (0.0-5.0); HEMATOCRIT. 42.4 % (42.0-52.0); HEMOGLOBIN. 15.3 g/dL (14.0-18.0); LYMPHOCYTES % 31.5 % (20.0-50.0); MEAN CORPUSCULAR HEMOGLOBIN 36.4 pg (28.0-32.0); MEAN CORPUSCULAR VOLUME 100.7 fL (80.0-94.0); MEAN PLATELET VOLUME 6.8 fl (7.4-10.4); MONOCYTES % 10.4 % (2.0-8.0); NEUTROPHILS % 55.3 % (40.0-76.0); PLATELET 328 x1000/uL (130-400); RED BLOOD CELL COUNT 4.21 mill/uL (4.7-6.1); RED CELL DISTRIBUTION WIDTH 14.9 % (11.6-14.6)
[2021-02-12 18:31] LABS: CHLORIDE 99 mEq/L (98-107)
[2021-02-12 18:36] LABS: D-DIMER 0.49 mg/L FEU (<0.50); PARTIAL THROMBOPLASTIN TIME 28.9 sec (23.4-31.0); PROTHROMBIN TIME 10.5 sec (9.6-11.0)
[2021-02-12] MEDS ORDERED: LORAZEPAM 2MG/ML CPJ IV ONE (19:15)
[2021-02-12] MEDS ORDERED: SODIUM CHLORIDE 0.9% 1,000 ML IV ONE (19:15)
[2021-02-12 20:22] VITALS: BP 143/92
== END 2021-02-12 20:24 | disposition home or self-care (01) ==
LOC: ER 16:46
DX: G92 Toxic encephalopathy (principal); F10.129 Alcohol abuse with intoxication, unspecified; R10.13 Epigastric pain; R41.0 Disorientation, unspecified; Z79.899 Other long term (current) drug therapy; Z86.718 Personal history of other venous thrombosis and embolism; Y90.9 Presence of alcohol in blood, level not specified
CPT/HCPCS: 36415; 71045; 80053; 83690; 83880; 84484; 85025; 85379; 85610; 85730; 93005; 96361; 96374; 99285; J2060; J7030

== ENCOUNTER 2021-02-14 18:56 | Emergency (ER) | payer OTHER, MEDICAID ==
[~2021-02-14] VITALS: Ht 193 cm; Wt 92.0 kg
[2021-02-14 18:58] VITALS: BP 138/86
[2021-02-14] MEDS ORDERED: LORAZEPAM 1MG TABLET PO ONE (20:45)
== END 2021-02-14 21:36 | disposition home or self-care (01) ==
LOC: ER 18:56
DX: R10.9 Unspecified abdominal pain (principal); F10.239 Alcohol dependence with withdrawal, unspecified; Y90.9 Presence of alcohol in blood, level not specified; Z86.711 Personal history of pulmonary embolism; Z86.718 Personal history of other venous thrombosis and embolism
CPT/HCPCS: 93005; 99283

== ENCOUNTER 2021-02-16 11:39 | Emergency (ER) | payer OTHER ==
[~2021-02-16] VITALS: Ht 198.1 cm; Wt 90.0 kg
[2021-02-16 11:51] VITALS: BP 167/100
[2021-02-16] MEDS ORDERED: CHLORDIAZEPOXIDE 5 MG CAPSULE PO NR (12:15)
[2021-02-16] MEDS ORDERED: CHLORDIAZEPOXIDE 25MG CAPSULE PO ONE (12:15)
[2021-02-16 13:13] LABS: BASOPHILS % 1.1 % (0.0-2.0); EOSINOPHILS % 1.8 % (0.0-5.0); HEMATOCRIT. 51.2 % (42.0-52.0); HEMOGLOBIN. 17.8 g/dL (14.0-18.0); LYMPHOCYTES % 24.6 % (20.0-50.0); MEAN CORPUSCULAR HEMOGLOBIN 35.9 pg (28.0-32.0); MEAN CORPUSCULAR VOLUME 103.4 fL (80.0-94.0); MONOCYTES % 6.7 % (2.0-8.0); NEUTROPHILS % 65.8 % (40.0-76.0); PLATELET 212 x1000/uL (130-400); RED BLOOD CELL COUNT 4.95 mill/uL (4.7-6.1); RED CELL DISTRIBUTION WIDTH 14.9 % (11.6-14.6)
[2021-02-16 13:19] LABS: CHLORIDE 97 mEq/L (98-107)
[2021-02-16 13:50] LABS: *AMPHETAMINES SCREEN URINE NEGATIVE (NEGATIVE); CANNABINOID URINE SCREEN NEGATIVE (NEGATIVE)
[2021-02-16 13:51] LABS: *BARBITURATES SCREEN URINE NEGATIVE (NEGATIVE); *BENZODIAZEPINES SCREEN URINE NEGATIVE (NEGATIVE); *COCAINE SCREEN URINE NEGATIVE (NEGATIVE); METHADONE URINE SCREEN NEGATIVE (NEGATIVE); OPIATES URINE SCREEN NEGATIVE (NEGATIVE); PHENCYCLIDINE URINE SCREEN NEGATIVE (NEGATIVE)
[2021-02-16 14:13] LABS: ETHANOL BLOOD 332 mg/dL
== END 2021-02-16 13:13 | disposition left against medical advice (07) ==
LOC: ER 11:39
DX: F10.129 Alcohol abuse with intoxication, unspecified (principal); Y90.8 Blood alcohol level of 240 mg/100 ml or more; R10.9 Unspecified abdominal pain; Z86.711 Personal history of pulmonary embolism; Z86.718 Personal history of other venous thrombosis and embolism
CPT/HCPCS: 36415; 80053; 80305; 80320; 85025; 99283; G0480

== ENCOUNTER 2021-02-16 18:01 | Emergency (ER) | payer OTHER, MEDICAID ==
[~2021-02-16] VITALS: Ht 182.9 cm; Wt 90.0 kg
[2021-02-16 18:33] VITALS: BP 155/101
[2021-02-16] MEDS ORDERED: ACETAMINOPHEN 325MG TABLET PO STA (21:35)
== END 2021-02-16 22:13 | disposition left against medical advice (07) ==
LOC: ER 18:01
DX: Z53.21 Procedure and treatment not carried out due to patient leaving prior to being seen by health care provider (principal); R10.84 Generalized abdominal pain; I10 Essential (primary) hypertension
CPT/HCPCS: 93005

== ENCOUNTER 2021-02-17 22:01 | Emergency (ER) | payer OTHER ==
[~2021-02-17] VITALS: Ht 198.1 cm; Wt 100.0 kg
[2021-02-17 22:24] VITALS: BP 132/78
== END 2021-02-17 23:30 | disposition left against medical advice (07) ==
LOC: ER 22:01
DX: R10.9 Unspecified abdominal pain (principal); Z53.21 Procedure and treatment not carried out due to patient leaving prior to being seen by health care provider

== ENCOUNTER 2021-02-18 20:05 | Emergency (ER) | payer MEDICAID, OTHER ==
[~2021-02-18] VITALS: Ht 198.1 cm; Wt 99.0 kg
[2021-02-18 20:07] VITALS: BP 159/111
== END 2021-02-18 22:36 | disposition left against medical advice (07) ==
LOC: ER 20:05
DX: Z53.21 Procedure and treatment not carried out due to patient leaving prior to being seen by health care provider (principal); I49.9 Cardiac arrhythmia, unspecified
CPT/HCPCS: 93005

== ENCOUNTER 2021-03-06 02:59 | Emergency (ER) | payer MEDICAID ==
[~2021-03-06] VITALS: Ht 182.9 cm; Wt 96.0 kg
[2021-03-06 03:01] VITALS: BP 122/87
[2021-03-06] MEDS ORDERED: LORAZEPAM 1MG TABLET PO ONE (04:15)
== END 2021-03-06 04:09 | disposition left against medical advice (07) ==
LOC: ER 02:59
DX: F10.10 Alcohol abuse, uncomplicated (principal); Y90.9 Presence of alcohol in blood, level not specified; I10 Essential (primary) hypertension
CPT/HCPCS: 99283

== ENCOUNTER 2021-03-09 01:37 | Emergency (ER) | payer MEDICAID ==
[~2021-03-09] VITALS: Ht 198.1 cm; Wt 91.0 kg
[2021-03-09 02:14] VITALS: BP 161/98
[2021-03-09] MEDS ORDERED: ONDANSETRON 4MG ODT PO ONE (03:45)
[2021-03-09 03:47] LABS: BASOPHILS % 2.1 % (0.0-2.0); EOSINOPHILS % 2.9 % (0.0-5.0); HEMATOCRIT. 47.3 % (42.0-52.0); HEMOGLOBIN. 16.3 g/dL (14.0-18.0); LYMPHOCYTES % 23.7 % (20.0-50.0); MEAN CORPUSCULAR HEMOGLOBIN 35.8 pg (28.0-32.0); MEAN CORPUSCULAR VOLUME 103.7 fL (80.0-94.0); MONOCYTES % 6.6 % (2.0-8.0); NEUTROPHILS % 64.7 % (40.0-76.0); PLATELET 341 x1000/uL (130-400); RED BLOOD CELL COUNT 4.56 mill/uL (4.7-6.1); RED CELL DISTRIBUTION WIDTH 14.4 % (11.6-14.6)
[2021-03-09 03:56] LABS: CHLORIDE 102 mEq/L (98-107)
[2021-03-09 03:58] LABS: CLARITY URINE CLEAR (CLEAR); COLOR URINE YELLOW (YELLOW); KETONES URINE NEGATIVE (NEGATIVE); LEUKOCYTE ESTERASE URINE NEGATIVE (NEGATIVE); NITRITE URINE NEGATIVE (NEGATIVE); OCCULT BLOOD URINE NEGATIVE (NEGATIVE); PH URINE 6.5 (4.5-8.0); PROTEIN URINE NEGATIVE (NEGATIVE); SPECIFIC GRAVITY URINE 1.009 (1.005-1.030); UROBILINOGEN URINE 0.2 E.U./dL (0.2-1.0)
== END 2021-03-09 04:40 | disposition home or self-care (01) ==
LOC: ER 01:37
DX: F10.10 Alcohol abuse, uncomplicated (principal); Y90.9 Presence of alcohol in blood, level not specified; Z91.14 Patient's other noncompliance with medication regimen; I10 Essential (primary) hypertension
CPT/HCPCS: 36415; 80053; 81003; 83690; 85025; 93005; 99284; Q0162

== ENCOUNTER 2021-03-10 14:55 | Emergency (ER) | payer MEDICAID ==
[~2021-03-10] VITALS: Ht 198.1 cm; Wt 98.0 kg
[2021-03-10 15:12] VITALS: BP 137/94
[2021-03-11] MEDS ORDERED: FAMO-135 MT (04:14)
== END 2021-03-10 16:29 | disposition left against medical advice (07) ==
LOC: ER 14:55
DX: R07.89 Other chest pain (principal); Z53.21 Procedure and treatment not carried out due to patient leaving prior to being seen by health care provider
CPT/HCPCS: 93005

== ENCOUNTER 2021-03-10 19:11 | Emergency (ER) | payer MEDICAID ==
[~2021-03-10] VITALS: Ht 198.1 cm; Wt 98.0 kg
[2021-03-11] MEDS ORDERED: MAGNESIUM/ALUMINUM HYDROXIDE/SIMETHICONE 30ML UDC PO STA (02:27)
[2021-03-11] MEDS ORDERED: FAMOTIDINE 20MG/2ML VIAL IV STA (02:27)
[2021-03-11] MEDS ORDERED: ONDANSETRON HCL 4MG/2ML INJ IV STA (02:27)
[2021-03-11] MEDS ORDERED: SODIUM CHLORIDE 0.9% 1,000 ML IV ONE (02:30)
[2021-03-11] MEDS ORDERED: CHLORDIAZEPOXIDE 25MG CAPSULE PO ONE (02:30)
[2021-03-11] MEDS ORDERED: CHLORDIAZEPOXIDE 5 MG CAPSULE PO NR (03:00)
[2021-03-11 03:09] LABS: BASOPHILS % 0.5 % (0.0-2.0); EOSINOPHILS % 0.2 % (0.0-5.0); HEMATOCRIT. 44.8 % (42.0-52.0); HEMOGLOBIN. 15.8 g/dL (14.0-18.0); LYMPHOCYTES % 7.8 % (20.0-50.0); MEAN CORPUSCULAR HEMOGLOBIN 36.3 pg (28.0-32.0); MEAN CORPUSCULAR VOLUME 102.8 fL (80.0-94.0); MEAN PLATELET VOLUME 8.1 fl (7.4-10.4); NEUTROPHILS % 86.5 % (40.0-76.0); PLATELET 268 x1000/uL (130-400); RED BLOOD CELL COUNT 4.35 mill/uL (4.7-6.1); RED CELL DISTRIBUTION WIDTH 14.8 % (11.6-14.6)
[2021-03-11 03:11] LABS: CHLORIDE 96 mEq/L (98-107)
[2021-03-11 03:15] LABS: INR 1.1; PROTHROMBIN TIME 11.4 sec (9.6-11.0)
[2021-03-11] MEDS ORDERED: FAMO-135 MT (04:14)
[2021-03-11 05:05] VITALS: BP 156/89
== END 2021-03-11 05:27 | disposition home or self-care (01) ==
LOC: ER 19:11
DX: R10.13 Epigastric pain (principal); F10.10 Alcohol abuse, uncomplicated; Y90.9 Presence of alcohol in blood, level not specified; I10 Essential (primary) hypertension; Z86.711 Personal history of pulmonary embolism; Z86.718 Personal history of other venous thrombosis and embolism; Z79.01 Long term (current) use of anticoagulants
CPT/HCPCS: 36415; 80053; 83690; 85025; 85610; 93005; 96361; 96374; 96375; 99284; J2405; J3490; J7030

== ENCOUNTER 2021-03-21 21:27 | Emergency (ER) | payer MEDICAID ==
[~2021-03-21] VITALS: Ht 198.1 cm; Wt 91.0 kg
[~2021-03-21 21:27] MED LIST changes: +FAMO-135 MT
[2021-03-21 22:01] VITALS: BP_SYST 115
== END 2021-03-22 00:48 | disposition left against medical advice (07) ==
LOC: ER 21:35
DX: Z53.21 Procedure and treatment not carried out due to patient leaving prior to being seen by health care provider (principal)

== ENCOUNTER 2021-04-02 05:02 | Emergency (ER) | payer MEDICAID ==
[~2021-04-02] VITALS: Ht 198.1 cm; Wt 91.0 kg
[2021-04-02 05:14] VITALS: BP 148/97
[2021-04-02] MEDS ORDERED: LORAZEPAM 2MG/ML CPJ IV ONE (05:30)
[2021-04-02] MEDS ORDERED: FOLIC ACID 1 MG, THIAMINE HCL 100 MG, MVI, ADULT NO.1 10 ML in DEXTROSE 5% WATER 1,000 ML IV ONE (05:30)
[2021-04-02] MEDS ORDERED: SODIUM CHLORIDE 0.9% 1,000 ML IV ONE (05:30)
== END 2021-04-02 06:02 | disposition left against medical advice (07) ==
LOC: ER 05:02
DX: R00.0 Tachycardia, unspecified (principal); F10.20 Alcohol dependence, uncomplicated; F17.200 Nicotine dependence, unspecified, uncomplicated; I10 Essential (primary) hypertension; Z13.9 Encounter for screening, unspecified; Z79.899 Other long term (current) drug therapy; Y90.9 Presence of alcohol in blood, level not specified
CPT/HCPCS: 93005; 99283; J3411; J3490; J7030; J7070

== ENCOUNTER 2024-02-01 11:20 | Emergency (ER) | payer MEDICAID ==
[~2024-02-01] VITALS: Ht 198.1 cm; Wt 120.0 kg
[2024-02-01 11:24] VITALS: BP 118/70; PULSE 93; RESP 18; TEMP 98.9; O2SAT 98
[2024-02-01 12:13] LABS: HEMATOCRIT. 37.9 % (42.0-52.0); HEMOGLOBIN. 12.7 g/dL (14.0-18.0); MEAN CORPUSCULAR HEMOGLOBIN 36.1 pg (28.0-32.0); MEAN CORPUSCULAR HGB CONC 33.4 g/dL (31.0-37.0); MEAN CORPUSCULAR VOLUME 108.2 fL (80.0-94.0); MEAN PLATELET VOLUME 7.2 fl (7.4-10.4); PLATELET 247 x1000/uL (130-400); RED BLOOD CELL COUNT 3.51 mill/uL (4.7-6.1); RED CELL DISTRIBUTION WIDTH 17.1 % (11.6-14.6); WHITE BLOOD COUNT 3.1 x1000/uL (4.5-11.0)
[2024-02-01 12:14] LABS: DIFFERENTIAL COMMENT 1
[2024-02-01 12:20] LABS: CHLORIDE 107 mEq/L (98-107); POTASSIUM 3.9 mEq/L (3.5-5.1); SODIUM 144 mEq/L (136-145)
[2024-02-01 12:21] LABS: CALCIUM 8.3 mg/dL (8.7-10.4); CARBON DIOXIDE 28 mEq/L (21-32)
[2024-02-01 12:26] LABS: CREATININE 0.6 mg/dL (0.6-1.3); GLUCOSE 93 mg/dL (70-105)
[2024-02-01 12:27] LABS: TROPONIN I HIGH SENSITIVITY 4 ng/L (3.0-53)
[2024-02-01 12:28] LABS: UREA NITROGEN BLOOD < 5 mg/dL (9-23)
[2024-02-01 12:54] LABS: ETHANOL BLOOD 454 mg/dL (<10)
[2024-02-01 12:55] LABS: ANISOCYTOSIS 1+; PLATELET ESTIMATE NORMAL
[2024-02-01] MEDS ORDERED: FOLIC ACID 1 MG, THIAMINE HCL 100 MG, MVI, ADULT NO.1 10 ML in DEXTROSE 5% WATER 1,000 ML IV ONE (13:00)
== END 2024-02-01 15:59 | disposition left against medical advice (07) ==
LOC: ER 11:20
DX: F10.229 Alcohol dependence with intoxication, unspecified (principal); G92.9 Unspecified toxic encephalopathy; I10 Essential (primary) hypertension; Z79.899 Other long term (current) drug therapy; Y90.8 Blood alcohol level of 240 mg/100 ml or more
CPT/HCPCS: 36415; 80048; 80320; 84484; 85025; 99283; J3411; J3490; J7070; G0480

== ENCOUNTER 2024-07-08 00:53 | Emergency (ER) | payer MEDICAID ==
[~2024-07-08] VITALS: Ht 182.9 cm; Wt 105.0 kg
[2024-07-08 01:04] VITALS: BP 142/88; PULSE 90; RESP 14; TEMP 98.2; O2SAT 98
[2024-07-08 04:16] LABS: HEMATOCRIT. 44.8 % (42.0-52.0); HEMOGLOBIN. 14.9 g/dL (14.0-18.0); MEAN CORPUSCULAR HGB CONC 33.3 g/dL (31.0-37.0); MEAN CORPUSCULAR VOLUME 108.3 fL (80.0-94.0); MEAN PLATELET VOLUME 7.7 fl (7.4-10.4); PLATELET 145 x1000/uL (130-400); RED BLOOD CELL COUNT 4.14 mill/uL (4.7-6.1); RED CELL DISTRIBUTION WIDTH 16.1 % (11.6-14.6)
[2024-07-08 04:21] LABS: CHLORIDE 110 mEq/L (98-107); SODIUM 147 mEq/L (136-145)
[2024-07-08 04:22] LABS: CALCIUM 8.9 mg/dL (8.7-10.4); CARBON DIOXIDE 28 mEq/L (21-32)
[2024-07-08 04:27] LABS: CREATININE 0.7 mg/dL (0.6-1.3); GLUCOSE 98 mg/dL (70-105); UREA NITROGEN BLOOD 6 mg/dL (9-23)
[2024-07-08 04:42] LABS: DIFFERENTIAL COMMENT 1
[2024-07-08 04:55] LABS: TROPONIN I HIGH SENSITIVITY < 4 ng/L (3.0-53)
[2024-07-08 10:30] LABS: ATYPICAL LYMPHOCYTES 1; PLATELET ESTIMATE NORMAL
== END 2024-07-08 05:18 | disposition home or self-care (01) ==
LOC: ER 00:53
DX: R07.89 Other chest pain (principal); R51.9 Headache, unspecified; I10 Essential (primary) hypertension; F10.20 Alcohol dependence, uncomplicated; Z82.49 Family history of ischemic heart disease and other diseases of the circulatory system; Z79.01 Long term (current) use of anticoagulants
CPT/HCPCS: 36415; 71045; 80048; 84484; 85025; 93005; 99284

== ENCOUNTER 2024-07-26 00:25 | Emergency (ER) | payer MEDICAID ==
[~2024-07-26] VITALS: Ht 198.1 cm; Wt 100.0 kg
[2024-07-26 00:29] VITALS: BP 170/89; PULSE 98; RESP 18; TEMP 98.9; O2SAT 99
== END 2024-07-26 00:52 | disposition left against medical advice (07) ==
LOC: ER 00:25
DX: R07.89 Other chest pain (principal); F10.20 Alcohol dependence, uncomplicated; I10 Essential (primary) hypertension; Z79.899 Other long term (current) drug therapy; Y90.9 Presence of alcohol in blood, level not specified
CPT/HCPCS: 71045; 93005; 99283

== ENCOUNTER 2024-12-30 01:57 | Emergency (ER) | payer MEDICAID, OTHER ==
[~2024-12-30] VITALS: Ht 182.9 cm; Wt 96.0 kg
[2024-12-30 02:02] VITALS: O2SAT 95
[2024-12-30] MEDS ORDERED: DICYCLOMINE 10 MG/5 ML ORAL SYR PO STA (02:06)
[2024-12-30] MEDS: ONDANSETRON 4MG ODT PO STA (02:39)
[2024-12-30] MEDS: CHLORDIAZEPOXIDE 25MG CAPSULE PO ONE (02:40)
[2024-12-30] MEDS: MAGNESIUM/ALUMINUM HYDROXIDE/SIMETHICONE 30ML UDC PO STA (02:58)
[2024-12-30 03:28] LABS: BASOPHILS % 0.6 % (0.0-2.0); DIFFERENTIAL COMMENT 0; EOSINOPHILS % 2.1 % (0.0-5.0); HEMOGLOBIN. 15.3 g/dL (14.0-18.0); LYMPHOCYTES % 45.2 % (20.0-50.0); MEAN CORPUSCULAR HEMOGLOBIN 34.8 pg (28.0-32.0); MEAN CORPUSCULAR VOLUME 102.2 fL (80.0-94.0); MEAN PLATELET VOLUME 7.3 fl (7.4-10.4); MONOCYTES % 8.8 % (2.0-8.0); NEUTROPHILS % 43.3 % (40.0-76.0); PLATELET 160 x1000/uL (130-400); RED BLOOD CELL COUNT 4.41 mill/uL (4.7-6.1); RED CELL DISTRIBUTION WIDTH 14.2 % (11.6-14.6); WHITE BLOOD COUNT 3.6 x1000/uL (4.5-11.0)
[2024-12-30 03:33] LABS: PROTHROMBIN TIME 10.3 sec (9.6-11.0)
[2024-12-30 03:35] LABS: CARBON DIOXIDE 25 mEq/L (21-32); CHLORIDE 106 mEq/L (98-107); POTASSIUM 3.7 mEq/L (3.5-5.1); SODIUM 142 mEq/L (136-145)
[2024-12-30 03:40] LABS: CREATININE 0.7 mg/dL (0.6-1.3)
[2024-12-30 03:41] LABS: ETHANOL BLOOD 300 mg/dL (<10); GLUCOSE 102 mg/dL (70-105); TROPONIN I HIGH SENSITIVITY 4 ng/L (3.0-53); UREA NITROGEN BLOOD 8 mg/dL (9-23)
[2024-12-30 03:42] LABS: ALANINE AMINOTRANSFERASE 55 IU/L (10-49); ALBUMIN 4.8 g/dL (3.2-4.8); ASPARTATE AMINOTRANSFERASE 50 IU/L (<34)
[2024-12-30 03:43] LABS: BILIRUBIN DIRECT 0.2 mg/dL (<=3.0); BILIRUBIN TOTAL 0.8 mg/dL (0.1-1.0); PROTEIN TOTAL 7.5 g/dL (6.0-8.3)
[2024-12-30] MEDS: DICYCLOMINE HCL 10MG CAPSULE PO SCH (04:05)
[2024-12-30 04:34] VITALS: TEMP 36.7
[2024-12-30 05:42] VITALS: BP 124/75; PULSE 86; RESP 10; O2SAT 95
== END 2024-12-30 05:58 | disposition home or self-care (01) ==
LOC: ER 01:57
DX: F10.229 Alcohol dependence with intoxication, unspecified (principal); R07.89 Other chest pain; I10 Essential (primary) hypertension; Z79.899 Other long term (current) drug therapy; Z86.718 Personal history of other venous thrombosis and embolism; Y90.8 Blood alcohol level of 240 mg/100 ml or more
CPT/HCPCS: 80076; 80048; 80320; 83880; 83690; 83735; 84100; 85025; 85610; 84484; 36415; 71045; 93005; 99285; Q0162; Z7610; G0480

== ENCOUNTER 2025-01-21 03:27 | Emergency (ER) | payer OTHER ==
[~2025-01-21] VITALS: Ht 193 cm; Wt 105.0 kg
[2025-01-21 03:31] VITALS: O2SAT 99
[2025-01-21 04:31] LABS: CLARITY URINE CLEAR (CLEAR); COLOR URINE YELLOW (YELLOW); GLUCOSE URINE NEGATIVE (NEGATIVE); KETONES URINE NEGATIVE (NEGATIVE); LEUKOCYTE ESTERASE URINE NEGATIVE (NEGATIVE); NITRITE URINE NEGATIVE (NEGATIVE); OCCULT BLOOD URINE NEGATIVE (NEGATIVE); PH URINE 6.5 (4.5-8.0); PROTEIN URINE NEGATIVE (NEGATIVE); SPECIFIC GRAVITY URINE 1.006 (1.005-1.030); UROBILINOGEN URINE 0.2 E.U./dL (0.2-1.0)
[2025-01-21 04:35] LABS: CREATININE 0.8 mg/dL (0.6-1.3); UREA NITROGEN BLOOD 10 mg/dL (9-23)
[2025-01-21] MEDS: ONDANSETRON 4MG ODT PO ONE (05:28)
[2025-01-21 05:40] LABS: BASOPHILS % 0.9 % (0.0-2.0); EOSINOPHILS % 1.4 % (0.0-5.0); HEMATOCRIT. 44.1 % (42.0-52.0); HEMOGLOBIN. 14.7 g/dL (14.0-18.0); LYMPHOCYTES % 30.6 % (20.0-50.0); MEAN PLATELET VOLUME 7.0 fl (7.4-10.4); MONOCYTES % 12.9 % (2.0-8.0); NEUTROPHILS % 54.2 % (40.0-76.0); PLATELET 160 x1000/uL (130-400); RED BLOOD CELL COUNT 4.17 mill/uL (4.7-6.1); RED CELL DISTRIBUTION WIDTH 14.9 % (11.6-14.6)
[2025-01-21 05:57] LABS: TROPONIN I HIGH SENSITIVITY < 4 ng/L (3.0-53)
[2025-01-21 05:58] LABS: ASPARTATE AMINOTRANSFERASE 110 IU/L (<34); BILIRUBIN DIRECT 0.2 mg/dL (<=3.0); BILIRUBIN TOTAL 0.6 mg/dL (0.1-1.0); PROTEIN TOTAL 7.2 g/dL (6.0-8.3)
[2025-01-21 08:00] VITALS: BP 127/71; PULSE 70; RESP 18; TEMP 37.3; O2SAT 99
[2025-01-21 08:46] LABS: TROPONIN I HIGH SENSITIVITY 4 ng/L (3.0-53)
== END 2025-01-21 08:25 | disposition left against medical advice (07) ==
LOC: ER 03:39 → EDBEDREQ 07:10 → EDBEDREQTM 07:10 → ENRESERV 07:39 → CANRESERV 07:39 → CANBEDREQ 08:12 → ER 08:25
DX: R07.89 Other chest pain (principal); R10.12 Left upper quadrant pain; R79.89 Other specified abnormal findings of blood chemistry; I10 Essential (primary) hypertension; Z79.899 Other long term (current) drug therapy; Z98.890 Other specified postprocedural states
CPT/HCPCS: 80076; 80048; 81003; 83690; 85025; 85379; 84484; 36415; 71045; 93005; 99291; Q0162; Z7610; A4606

== ENCOUNTER 2025-01-23 10:46 | Emergency (ER) | payer OTHER ==
[~2025-01-23] VITALS: Ht 188 cm; Wt 90.0 kg
[2025-01-23 10:48] VITALS: BP 163/91; PULSE 89; RESP 16; TEMP 36.7; O2SAT 96
[2025-01-23 11:42] LABS: BASOPHILS % 0.7 % (0.0-2.0); EOSINOPHILS % 1.8 % (0.0-5.0); HEMATOCRIT. 41.6 % (42.0-52.0); HEMOGLOBIN. 13.9 g/dL (14.0-18.0); LYMPHOCYTES % 26.3 % (20.0-50.0); MEAN PLATELET VOLUME 7.2 fl (7.4-10.4); MONOCYTES % 9.7 % (2.0-8.0); NEUTROPHILS % 61.5 % (40.0-76.0); PLATELET 142 x1000/uL (130-400); RED BLOOD CELL COUNT 3.95 mill/uL (4.7-6.1); RED CELL DISTRIBUTION WIDTH 14.8 % (11.6-14.6)
[2025-01-23 12:00] LABS: CREATININE 0.7 mg/dL (0.6-1.3); UREA NITROGEN BLOOD 9 mg/dL (9-23)
[2025-01-23 12:01] LABS: TROPONIN I HIGH SENSITIVITY 4 ng/L (3.0-53)
[2025-01-23 12:10] LABS: ETHANOL BLOOD 391 mg/dL (<10)
== END 2025-01-23 16:21 | disposition left against medical advice (07) ==
LOC: ER 10:46 → EDBEDREQTM 14:21 → EDBEDREQ 14:21 → CMPBEDREQ 15:57 → ER 16:21
DX: R07.89 Other chest pain (principal); I10 Essential (primary) hypertension; F10.90 Alcohol use, unspecified, uncomplicated; Z79.01 Long term (current) use of anticoagulants; Z79.899 Other long term (current) drug therapy; Y90.9 Presence of alcohol in blood, level not specified
CPT/HCPCS: 36415; 80048; 80320; 83880; 84484; 85025; 93005; 99284; G0480

== ENCOUNTER 2025-01-23 18:12 | Emergency (ER) | payer OTHER ==
[~2025-01-23] VITALS: Ht 195.6 cm; Wt 91.0 kg
[~2025-01-23 18:12] MED LIST changes: +IBUP-1455 MT; -IBUP-2029 MT
[2025-01-23 18:17] VITALS: BP 137/84; PULSE 99; RESP 18; TEMP 36.9; O2SAT 99
[2025-01-23] MEDS ORDERED: SODIUM CHLORIDE 0.9% 1,000 ML IV ONE (19:15)
[2025-01-23 22:03] LABS: BASOPHILS % 0.8 % (0.0-2.0); EOSINOPHILS % 3.2 % (0.0-5.0); HEMATOCRIT. 41.2 % (42.0-52.0); HEMOGLOBIN. 13.9 g/dL (14.0-18.0); LYMPHOCYTES % 40.0 % (20.0-50.0); MEAN PLATELET VOLUME 7.5 fl (7.4-10.4); MONOCYTES % 8.6 % (2.0-8.0); NEUTROPHILS % 47.4 % (40.0-76.0); PLATELET 134 x1000/uL (130-400); RED BLOOD CELL COUNT 3.95 mill/uL (4.7-6.1); RED CELL DISTRIBUTION WIDTH 14.8 % (11.6-14.6)
[2025-01-23 22:14] LABS: CREATININE 0.7 mg/dL (0.6-1.3); UREA NITROGEN BLOOD 9 mg/dL (9-23)
[2025-01-23 22:24] LABS: ETHANOL BLOOD 315 mg/dL (<10)
== END 2025-01-23 23:25 | disposition left against medical advice (07) ==
LOC: ER 18:12
DX: F10.229 Alcohol dependence with intoxication, unspecified (principal); I10 Essential (primary) hypertension; Z79.01 Long term (current) use of anticoagulants; Y90.9 Presence of alcohol in blood, level not specified
CPT/HCPCS: 36415; 80048; 80320; 85025; 99283; J7030; G0480

== ENCOUNTER 2025-01-25 11:53 | Emergency (ER) | payer OTHER ==
[~2025-01-25] VITALS: Ht 195.6 cm; Wt 100.0 kg
[~2025-01-25 11:53] MED LIST changes: -IBUP-1455 MT; +IBUP-2029 MT
[2025-01-25 11:56] VITALS: BP 136/92; PULSE 100; RESP 18; TEMP 37.1; O2SAT 96
[2025-01-25 12:48] LABS: BASOPHILS % 0.8 % (0.0-2.0); EOSINOPHILS % 4.2 % (0.0-5.0); HEMATOCRIT. 40.2 % (42.0-52.0); HEMOGLOBIN. 13.9 g/dL (14.0-18.0); LYMPHOCYTES % 15.6 % (20.0-50.0); MONOCYTES % 7.0 % (2.0-8.0); NEUTROPHILS % 72.4 % (40.0-76.0); RED BLOOD CELL COUNT 3.83 mill/uL (4.7-6.1); RED CELL DISTRIBUTION WIDTH 14.8 % (11.6-14.6)
[2025-01-25 12:58] LABS: CREATININE 0.7 mg/dL (0.6-1.3); UREA NITROGEN BLOOD 9 mg/dL (9-23)
[2025-01-25 12:59] LABS: ETHANOL BLOOD 300 mg/dL (<10)
[2025-01-25 13:00] LABS: ASPARTATE AMINOTRANSFERASE 81 IU/L (<34); BILIRUBIN DIRECT 0.3 mg/dL (<=3.0)
[2025-01-25 13:01] LABS: BILIRUBIN TOTAL 1.0 mg/dL (0.1-1.0); PROTEIN TOTAL 7.0 g/dL (6.0-8.3)
[2025-01-25 13:45] LABS: MEAN PLATELET VOLUME 7.6 fl (7.4-10.4); PLATELET 130 x1000/uL (130-400)
== END 2025-01-25 13:46 | disposition home or self-care (01) ==
LOC: ER 11:53
DX: F10.229 Alcohol dependence with intoxication, unspecified (principal); I10 Essential (primary) hypertension; Z79.899 Other long term (current) drug therapy; Y90.8 Blood alcohol level of 240 mg/100 ml or more
CPT/HCPCS: 36415; 80048; 80076; 80320; 85025; 99283; G0480

== ENCOUNTER 2025-01-27 12:45 | Emergency (ER) | payer OTHER ==
[~2025-01-27] VITALS: Ht 195.6 cm; Wt 101.0 kg
[2025-01-27 12:49] VITALS: BP 140/101; PULSE 96; RESP 16; TEMP 37.1; O2SAT 97
[2025-01-27 14:21] LABS: BASOPHILS % 0.2 % (0.0-2.0); EOSINOPHILS % 0.8 % (0.0-5.0); HEMATOCRIT. 42.1 % (42.0-52.0); HEMOGLOBIN. 14.3 g/dL (14.0-18.0); LYMPHOCYTES % 22.3 % (20.0-50.0); MEAN PLATELET VOLUME 7.8 fl (7.4-10.4); MONOCYTES % 7.8 % (2.0-8.0); NEUTROPHILS % 68.9 % (40.0-76.0); PLATELET 118 x1000/uL (130-400); RED BLOOD CELL COUNT 4.04 mill/uL (4.7-6.1); RED CELL DISTRIBUTION WIDTH 15.5 % (11.6-14.6)
[2025-01-27 14:24] LABS: INR 0.9
[2025-01-27 14:27] LABS: CREATININE 0.7 mg/dL (0.6-1.3); UREA NITROGEN BLOOD 9 mg/dL (9-23)
[2025-01-27 14:28] LABS: TROPONIN I HIGH SENSITIVITY < 4 ng/L (3.0-53)
[2025-01-27 14:29] LABS: ASPARTATE AMINOTRANSFERASE 107 IU/L (<34); BILIRUBIN DIRECT 0.3 mg/dL (<=3.0); BILIRUBIN TOTAL 0.9 mg/dL (0.1-1.0)
[2025-01-27 14:30] LABS: PROTEIN TOTAL 7.5 g/dL (6.0-8.3)
[2025-01-27 14:37] LABS: CLARITY URINE CLEAR (CLEAR); COLOR URINE YELLOW (YELLOW); SPECIFIC GRAVITY URINE 1.007 (1.005-1.030)
[2025-01-27 14:38] LABS: GLUCOSE URINE NEGATIVE (NEGATIVE); KETONES URINE TRACE (NEGATIVE); LEUKOCYTE ESTERASE URINE NEGATIVE (NEGATIVE); NITRITE URINE NEGATIVE (NEGATIVE); OCCULT BLOOD URINE TRACE (NEGATIVE); PH URINE 6.0 (4.5-8.0); PROTEIN URINE TRACE (NEGATIVE); UROBILINOGEN URINE 1.0 E.U./dL (0.2-1.0)
[2025-01-27 14:56] LABS: RBC URINE 0-2 /hpf (0-2)
[2025-01-27 14:57] LABS: BACTERIA URINE NONE SEEN; SQUAMOUS EPITHELIAL CELL URINE RARE /lpf (RARE/1+); WBC URINE NONE SEEN /hpf (0-2)
== END 2025-01-27 14:20 | disposition left against medical advice (07) ==
LOC: ER 12:45
DX: M79.661 Pain in right lower leg (principal); R07.89 Other chest pain; R06.02 Shortness of breath; I10 Essential (primary) hypertension; Z79.899 Other long term (current) drug therapy
CPT/HCPCS: 36415; 71045; 80048; 80076; 81003; 84484; 85025; 85379; 93970; 99284

== ENCOUNTER 2025-01-28 12:48 | Emergency (ER) | payer OTHER ==
[~2025-01-28] VITALS: Ht 190.5 cm; Wt 203.0 kg
[2025-01-28 12:54] VITALS: O2SAT 95
[2025-01-28 13:45] LABS: BASOPHILS % 0.5 % (0.0-2.0); EOSINOPHILS % 0.6 % (0.0-5.0); HEMATOCRIT. 41.4 % (42.0-52.0); HEMOGLOBIN. 14.1 g/dL (14.0-18.0); LYMPHOCYTES % 18.9 % (20.0-50.0); MEAN PLATELET VOLUME 7.7 fl (7.4-10.4); MONOCYTES % 9.6 % (2.0-8.0); NEUTROPHILS % 70.4 % (40.0-76.0); PLATELET 109 x1000/uL (130-400); RED BLOOD CELL COUNT 3.97 mill/uL (4.7-6.1); RED CELL DISTRIBUTION WIDTH 15.7 % (11.6-14.6)
[2025-01-28 14:00] LABS: CREATININE 0.8 mg/dL (0.6-1.3); UREA NITROGEN BLOOD 12 mg/dL (9-23)
[2025-01-28 14:01] LABS: TROPONIN I HIGH SENSITIVITY < 4 ng/L (3.0-53)
[2025-01-28 14:35] LABS: CLARITY URINE CLEAR (CLEAR); COLOR URINE YELLOW (YELLOW); GLUCOSE URINE NEGATIVE (NEGATIVE); KETONES URINE 1+ (NEGATIVE); LEUKOCYTE ESTERASE URINE NEGATIVE (NEGATIVE); NITRITE URINE NEGATIVE (NEGATIVE); OCCULT BLOOD URINE NEGATIVE (NEGATIVE); PH URINE 6.5 (4.5-8.0); PROTEIN URINE NEGATIVE (NEGATIVE); SPECIFIC GRAVITY URINE 1.008 (1.005-1.030); UROBILINOGEN URINE 1.0 E.U./dL (0.2-1.0)
[2025-01-28 15:05] VITALS: BP 125/80; PULSE 85; RESP 12; TEMP 36.8; O2SAT 98
[2025-01-28] MEDS: ACETAMINOPHEN 325MG TABLET PO ONE (15:13)
== END 2025-01-28 15:31 | disposition home or self-care (01) ==
LOC: ER 12:48
DX: R07.89 Other chest pain (principal); F10.90 Alcohol use, unspecified, uncomplicated; I10 Essential (primary) hypertension; Z79.01 Long term (current) use of anticoagulants; Z86.718 Personal history of other venous thrombosis and embolism; Z79.899 Other long term (current) drug therapy; Z86.711 Personal history of pulmonary embolism; Y90.9 Presence of alcohol in blood, level not specified
CPT/HCPCS: 80048; 81003; 83880; 85025; 84484; 36415; 71045; 99284; Z7610; A4606

== ENCOUNTER 2025-01-28 17:43 | Emergency (ER) | payer OTHER ==
[~2025-01-28] VITALS: Ht 198.1 cm; Wt 105.0 kg
[2025-01-28 18:07] VITALS: TEMP 36.7; O2SAT 99
[2025-01-28] MEDS ORDERED: ACETAMINOPHEN 325MG TABLET PO STA (18:19)
[2025-01-28 18:58] VITALS: BP 142/82; PULSE 89; RESP 18; O2SAT 98
[2025-01-28 19:37] LABS: PLATELET 102 x1000/uL (130-400); RED CELL DISTRIBUTION WIDTH 15.5 % (11.6-14.6)
[2025-01-28 19:40] LABS: BASOPHILS % 0.5 % (0.0-2.0); EOSINOPHILS % 0.9 % (0.0-5.0); HEMATOCRIT. 42.1 % (42.0-52.0); HEMOGLOBIN. 14.3 g/dL (14.0-18.0); LYMPHOCYTES % 27.8 % (20.0-50.0); MEAN PLATELET VOLUME 8.1 fl (7.4-10.4); MONOCYTES % 10.0 % (2.0-8.0); NEUTROPHILS % 60.8 % (40.0-76.0); RED BLOOD CELL COUNT 4.00 mill/uL (4.7-6.1)
[2025-01-28 19:41] LABS: CREATININE 0.8 mg/dL (0.6-1.3); TROPONIN I HIGH SENSITIVITY < 4 ng/L (3.0-53); UREA NITROGEN BLOOD 10 mg/dL (9-23)
[2025-01-28 20:28] VITALS: TEMP 98
[2025-01-28] MEDS: ACETAMINOPHEN 325MG TABLET PO NR (20:28)
[2025-01-28 21:11] LABS: *AMPHETAMINES SCREEN URINE NEGATIVE (NEGATIVE); *BARBITURATES SCREEN URINE PRESUMPTIVE POSITIVE (NEGATIVE); *BENZODIAZEPINES SCREEN URINE PRESUMPTIVE POSITIVE (NEGATIVE); *COCAINE SCREEN URINE NEGATIVE (NEGATIVE); METHADONE URINE SCREEN NEGATIVE (NEGATIVE)
[2025-01-28 21:12] LABS: CANNABINOID URINE SCREEN NEGATIVE (NEGATIVE); ECSTASY MDMA SCREEN URINE NEGATIVE (NEGATIVE); OPIATES URINE SCREEN NEGATIVE (NEGATIVE); PHENCYCLIDINE URINE SCREEN NEGATIVE (NEGATIVE)
[2025-01-28] MEDS: CHLORDIAZEPOXIDE 25MG CAPSULE PO ONE (21:48)
== END 2025-01-29 01:48 | disposition home or self-care (01) ==
LOC: ER 17:43
DX: R07.89 Other chest pain (principal); R10.9 Unspecified abdominal pain; F10.129 Alcohol abuse with intoxication, unspecified; I10 Essential (primary) hypertension; Z79.01 Long term (current) use of anticoagulants; Y90.8 Blood alcohol level of 240 mg/100 ml or more; Z79.899 Other long term (current) drug therapy
CPT/HCPCS: 36415; 80048; 80305; 80320; 84484; 85025; 93005; 99284; G0480

== ENCOUNTER 2025-01-29 12:38 | Emergency (ER) | payer OTHER ==
[~2025-01-29] VITALS: Ht 195.6 cm; Wt 91.0 kg
[2025-01-29 12:40] VITALS: BP 128/74; PULSE 94; RESP 18; TEMP 36.9; O2SAT 94
[2025-01-29] MEDS ORDERED: DICYCLOMINE 10 MG/5 ML ORAL SYR PO STA (13:17)
[2025-01-29] MEDS ORDERED: MAGNESIUM/ALUMINUM HYDROXIDE/SIMETHICONE 30ML UDC PO STA (13:17)
[2025-01-29] MEDS ORDERED: ONDANSETRON 4MG ODT PO STA (13:17)
[2025-01-29] MEDS ORDERED: DICYCLOMINE HCL 10MG CAPSULE PO SCH (14:00)
== END 2025-01-29 13:34 | disposition left against medical advice (07) ==
LOC: ER 12:40
DX: R10.9 Unspecified abdominal pain (principal); Z53.21 Procedure and treatment not carried out due to patient leaving prior to being seen by health care provider

== ENCOUNTER 2025-01-29 15:08 | Emergency (ER) | payer MEDICAID, OTHER ==
[~2025-01-29] VITALS: Ht 195.6 cm; Wt 88.0 kg
[2025-01-29 15:17] VITALS: TEMP 36.9; O2SAT 96
[2025-01-29] MEDS ORDERED: DICYCLOMINE 10 MG/5 ML ORAL SYR PO STA (15:29)
[2025-01-29] MEDS: DICYCLOMINE HCL 10MG CAPSULE PO NR (16:32)
[2025-01-29] MEDS: MAGNESIUM/ALUMINUM HYDROXIDE/SIMETHICONE 30ML UDC PO STA (16:32)
[2025-01-29] MEDS: ONDANSETRON 4MG ODT PO STA (16:32)
[2025-01-29 16:42] LABS: CLARITY URINE CLEAR (CLEAR); COLOR URINE YELLOW (YELLOW); GLUCOSE URINE NEGATIVE (NEGATIVE); KETONES URINE NEGATIVE (NEGATIVE); LEUKOCYTE ESTERASE URINE NEGATIVE (NEGATIVE); NITRITE URINE NEGATIVE (NEGATIVE); OCCULT BLOOD URINE TRACE (NEGATIVE); PH URINE 6.5 (4.5-8.0); PROTEIN URINE NEGATIVE (NEGATIVE); SPECIFIC GRAVITY URINE 1.005 (1.005-1.030); UROBILINOGEN URINE 0.2 E.U./dL (0.2-1.0)
[2025-01-29 17:10] LABS: BACTERIA URINE NONE SEEN; RBC URINE NONE SEEN /hpf (0-2); SQUAMOUS EPITHELIAL CELL URINE NONE SEEN /lpf (RARE/1+); WBC URINE NONE SEEN /hpf (0-2); YEAST URINE NONE SEEN
[2025-01-29 17:37] LABS: CREATININE 0.8 mg/dL (0.6-1.3); UREA NITROGEN BLOOD 9 mg/dL (9-23)
[2025-01-29 17:38] LABS: ETHANOL BLOOD 300 mg/dL (<10); TROPONIN I HIGH SENSITIVITY 4 ng/L (3.0-53)
[2025-01-29 17:39] LABS: ASPARTATE AMINOTRANSFERASE 147 IU/L (<34); BILIRUBIN DIRECT 0.2 mg/dL (<=3.0); BILIRUBIN TOTAL 0.7 mg/dL (0.1-1.0); PROTEIN TOTAL 7.9 g/dL (6.0-8.3)
[2025-01-29 18:49] LABS: BASOPHILS % 0.5 % (0.0-2.0); EOSINOPHILS % 3.5 % (0.0-5.0); HEMATOCRIT. 43.9 % (42.0-52.0); HEMOGLOBIN. 15.3 g/dL (14.0-18.0); LYMPHOCYTES % 30.3 % (20.0-50.0); MEAN PLATELET VOLUME 7.6 fl (7.4-10.4); MONOCYTES % 10.4 % (2.0-8.0); NEUTROPHILS % 55.3 % (40.0-76.0); PLATELET 100 x1000/uL (130-400); RED BLOOD CELL COUNT 4.19 mill/uL (4.7-6.1); RED CELL DISTRIBUTION WIDTH 15.7 % (11.6-14.6)
[2025-01-29 19:01] LABS: INR 1.0
[2025-01-29 20:24] VITALS: BP 129/83; PULSE 91; RESP 18; O2SAT 99
== END 2025-01-29 20:31 | disposition home or self-care (01) ==
LOC: ER 15:08
DX: F10.129 Alcohol abuse with intoxication, unspecified (principal); I10 Essential (primary) hypertension; Z79.01 Long term (current) use of anticoagulants; Z79.899 Other long term (current) drug therapy; Y90.8 Blood alcohol level of 240 mg/100 ml or more
CPT/HCPCS: 80076; 80048; 81003; 80320; 83690; 85025; 85610; 84484; 36415; 71045; 93005; 99285; Q0162; G0480